=== PATIENT | female | born 1955 | race Caucasian/White ===

== ENCOUNTER 2025-03-18 09:55 | Outpatient (AMB) | payer MEDICARE, SELFPAY ==
--- NOTE | 2025-03-18 10:16 | PD.ORTHCLVIS ---
Vital signs 03/18/25 10:17 Height 1.55 m Height Method Measured Weight 69.626 kg Weight Measurement Method Standing Scale BMI 29.0 BP 212/92 H Blood Pressure Source Automatic Cuff Blood Pressure Location Left Upper Arm Position Sitting Respiration 18 Pulse 82 Pulse Source Monitor Temp 97.4 F Temp Source Temporal Artery Scan Pulse Oximetry (%) 96 Oxygen Delivery Method Room Air Med/Allergies Allergies & Medications Allergies No Known Allergies Allergy (Verified 03/18/25 10:18) Medication Reconciliation lisinopril 20 mg-hydrochlorothiazide 25 mg tablet 1 tab PO QDAY 12/28/23 [History Confirmed 03/18/25] acetaminophen 325 mg tablet (Pain Relief (acetaminophen)) 650 mg (2 x 325 mg) PO Q6H PRN pain #30 tabs 01/02/24 [Rx Confirmed 03/18/25] aspirin 81 mg tablet,delayed release 81 mg PO BID #30 tabs 01/02/24 [Rx Confirmed 03/18/25] Exam Exam Patient is in no acute distress and is cooperative with the examination today. Patient has a normal mood and affect. Breathing is nonlabored. In no respiratory distress. Bilateral extremities were evaluated and demonstrates sensation intact to light touch. Palpable pedal pulses are present. No significant edema is present. Right hip incision is clean dry intact. Leg lengths are equal. There is no pain with logroll Assessment and Plan Problem List (1) Status post total hip replacement, right: Status: Acute Plan: Patient is a 60-year-old female status post right total hip replacement. She is doing well. She has minimal pain. Patient is very happy with her pain relief. We will get new x-rays. She is doing very well (2) Fracture of femoral neck: Status: Acute Advanced Care Planning Discussion Advance care planning discussed with:: patient Office Procedures GNS Level of Care Nursing/Assessment Patient Status: Established Patient Nursing Assessment/Reassesment: Medication Reconciliation, Update PMH in EMR and Vital Signs Coordination of Care: Complex Care and Chronic Disease 1-5, Education Complex Pt/Fam, Consent,records obtained, informed consent, Results/Orders obtained and Staff clarify orders Established Patient Charge Established Patient Point Assignment: 95 Established Patient Point Charge: EP Level 3 (80-115) MA Intake Visit Data Collection New Patient or Established: Established Patient (seen at [facility] within 3 years) Reason for Visit:: 1 YEAR HIP SX F/U Seen by Clinical Staff ONLY (RN/MA): No Agency Sales Development Associate Required: No PCP or OBGYN visit in last 3 months: Yes Hx Now: No Do You Feel Safe at Home: Yes Authorities Contacted: N/A Questionairres Past Medical History Past Medical History Have you ever been diagnosed with any of the following: Neurological Problems Seizures: No Cardiology Problems Congestive Heart Failure: No Hypertension: Yes Respiratory Problems Chronic Obstructive Pulmonary Disease (COPD): No Smoking: No Smoking Exposure: No Genital/Urinary Problems Renal Disease: No Endocrine Problems Diabetes Mellitus Type 1: No Diabetes Mellitus Type 2: No Other Problems Blood Transfusions: No Blood Transfusion Reaction: No Anesthesia Reactions: No Subjective Visit Visit for: follow up visit and hip Immunization / Flu Flu Vaccine in the Last 12 Months: No Flu Vaccine Exclusion Criteria: Already Received History of Present Illness Chief complaint: 1 YEAR HIP SURGERY F/U Parisa is a pleasant 69-year-old female who is status post total hip replacement for a right femoral neck fracture. She is doing well. Is a 1 year anniversary. We Will get new x-rays. She is doing well Personal History Red flag PMH: none BMI Counceling provided: No Treatments Improvement with previous injections: No Improvement with PT: No Improvement with NSAIDS: no Review of Systems Review of Systems: All systems negative unless otherwise noted in HPI.
[2025-03-18 10:17] VITALS: BP 212/92; PULSE 82; RESP 18; TEMP 36.3; O2SAT 96; BMI 29.0
--- NOTE | 2025-03-18 10:24 | XR_ITS ---
Examination:Right hip AP, lateral, AP pelvis 3 views Technique: Hip AP lateral, AP pelvis, 3 views Exam date and time:March 18, 2025 1035 hours INDICATIONS: Right hip replacement December 2023, right hip pain this month FINDINGS: Total right hip arthroplasty. Satisfactory alignment. No loosening of the prosthetic components. Moderate left hip osteoarthritis IMPRESSION: Total right hip arthroplasty with satisfactory alignment.
== END 2025-03-18 10:27 | disposition home or self-care (01) ==
LOC: HODSRG 09:55
PROVIDERS: PCP Family Medicine; Referring Provider Family Medicine; Supervising Provider Orthopaedic Surgery Adult Reconstructive Orthopaedic Surgery; Visit Provider Orthopaedic Surgery Adult Reconstructive Orthopaedic Surgery
DX: Z96.641 Presence of right artificial hip joint (principal); S72.001D Fracture of unspecified part of neck of right femur, subsequent encounter for closed fracture with routine healing; X58.XXXD Exposure to other specified factors, subsequent encounter; I10 Essential (primary) hypertension
CPT/HCPCS: 73502; 99213; G0463